=== PATIENT | female | born 1990 | race African-American/Black ===

== ENCOUNTER 2017-08-19 22:08 | Emergency (ER) | payer OTHER, SELFPAY ==
[2017-08-19 23:23] LABS: Pregnancy Test - Urine (BHCG) POSITIVE (Negative); Pregu Control Background? CLEAR/WHITE (CLR/WHITE); Pregu Control Bar Appear? YES (CONTROL BAR)
[2017-08-19 23:24] LABS: Bilirubin Negative (Negative); Blood, Urine Moderate (Negative); Clarity CLEAR (Clear); Glucose, Urine (Dipstick) Negative (Negative); Leukocyte Negative (Negative); Nitrite Negative (Negative); Protein, Urine (Dipstick) Trace mg/dL (Neg-Trace); Specific Gravity, Urine 1.024 (1.002-1.036); pH, Urine 7.5 (5.0-9.0)
[2017-08-19 23:25] LABS: Bacteria/HPF None Seen HPF (None Seen); Hyaline Casts/LPF 0-3 HYALINE CAST LPF (0-3 Hyaline); RBC/HPF 0-3 HPF (0-3); Squamous Epithelial 0-3 HPF (0-3); WBC/HPF 0-3 HPF (0-3)
[2017-08-19 23:26] LABS: Specific Gravity 1.024 (1.002-1.036)
[2017-08-19] MEDS ORDERED: Acetaminophen 500 MG TAB ONE (23:37)
[2017-08-19 23:42] LABS: #Monocytes 0.4 thou/uL (0.11-0.59); #Neutrophils 5.5 thou/uL (1.40-6.50); %Basophils 0.3 % (0.0-1.0); %Eosinophils 0.4 % (0.0-10.0); %Monocytes 5.9 % (0.0-10.0); %Neutrophils 79.5 % (42.0-75.0); Hemoglobin 12.8 g/dL (12.0-16.0); Mean Corpuscular HGB CONC 34.7 g/dL (32.0-36.0); Mean Corpuscular Hemoglobin 31.7 pg (27.0-31.0); Mean Corpuscular Volume 91.4 fL (78.0-98.0); Mean Platelet Volume 7.8 fL (7.4-10.4); Platelet Count 215 thou/uL (130-400); RBC Distribution Width 11.9 % (11.5-14.5); Red Blood Cell (RBC) Count 4.05 mill/uL (4.20-5.40)
[2017-08-19 23:49] LABS: BHCG - Serum POSITIVE (NEGATIVE); Pregs Control Background? CLEAR/WHITE (CLR/WHITE); Pregs Control Bar Appear? YES (CONTROL BAR)
[2017-08-20 00:04] LABS: ALT (SGPT) 23 U/L (8-55); AST (SGOT) 24 U/L (5-34); Albumin 3.8 g/dL (3.5-5.0); Alkaline Phosphatase 89 U/L (40-150); Anion Gap 10 mmol/L (10-20); BUN (Urea Nitrogen) 13 mg/dL (7.0-18.7); Bilirubin, Total 0.3 mg/dL (0.2-1.2); Calc. Creatinine Clearance 0 mL/min (70-130); Calcium 9.7 mg/dL (7.8-10.44); Carbon Dioxide 25 mmol/L (22-29); Chloride 107 mmol/L (98-107); Estimated GFR-MDRD 83; Glucose 124 mg/dL (70-105); Lipase 50 U/L (8-78); Potassium 4.2 mmol/L (3.5-5.1); Protein, Total 7.8 g/dL (6.0-8.3); Sodium 138 mmol/L (136-145)
--- NOTE | 2017-08-20 07:10 | CON ---
DATE OF CONSULTATION: 08/20/2017 LOCATION: Emergency room bed, 26. CHIEF COMPLAINT: Rule out ectopic. CONSULTING PHYSICIAN: Dr. López. HISTORY OF PRESENT ILLNESS: This is a 26-year-old 1 who found out she was 2 days ag o who presented to the emergency room for a sudden onset of sharp abdominal pain at 8:00. She report s that the pain has completely resolved at this point. Movement made it worse, but it resolved on it s own. She also had some mild vaginal spotting, but no heavy bleeding. She denies any other complai nts tonight. REVIEW OF SYSTEMS: Negative for head, eyes, ears, nose, throat, cardiovascular, respiratory, GI, , neuro, psych, musculoskeletal, skin or constitutional symptoms other than mentioned above. PAST MEDICAL HISTORY: HIV. PAST SURGICAL HISTORY: Laparoscopic cholecystectomy. OBSTETRIC AND GYNECOLOGIC HISTORY: Reports no abnormal Pap smears. This is her first . MEDICATIONS: HIV medications. ALLERGIES: No known drug allergies. SOCIAL HISTORY: Positive for tobacco use, but reports she quit today. Negative for alcohol, or drug use. FAMILY HISTORY: Noncontributory. PHYSICAL EXAMINATION: VITAL SIGNS: Afebrile with normal vital signs. GENERAL: Awake, alert, in no acute distress, appears comfortable. CHEST: Nonlabored breathing. ABDOMEN: Morbidly obese, soft, nontender to palpation. No guarding or rebound. PELVIC: Limited due to body habitus, but no cervical motion tenderness or tenderness on exam. No bl eeding noted. IMAGING: Ultrasound revealed an endometrial stripe measuring approximately 6 mm. No obvious intraut erine . Questionable cystic structure in the adnexa, but no definitive evidence of ectopic . Minimal free fluid in the pelvis. LABORATORY DATA: HCG 2314. Labs are otherwise unremarkable. ASSESSMENT AND PLAN: A 26-year-old G1 with early intrauterine versus ectopic . T here is no definitive evidence of ectopic and the patient's symptoms have now resolved. Gi iain the recent recommendations from ACOG to increase the threshold up to 3500 and the resolution of t he patient's symptoms, I recommend the patient return in 48 hours for repeat hCG and ultrasound. At that time, the level should be high enough to definitively rule out a normal intrauterine . She should return prior to that if her symptoms worsen. I reiterated the importance of the patient show up for repeat exam and laboratory and she agrees to do so.
--- NOTE | 2017-08-20 10:46 | ULT ---
PRELIMINARY REPORT/[facility]/EMERGENCY AFTER HOURS PROCEDURE: EXAM: US , Transvaginal CLINICAL HISTORY: 26 years old, female; Pain; Other: Vag spotting, pelvic pain; Gestational age or lmp: ? 5-6weeks suellen od "in june"; ; Patient HX: Exam limited due to pt body habitus (127kg). HCG level 2314. TECHNIQUE: Real-time transvaginal obstetrical ultrasound of the maternal pelvis and a first trimester with image documentation. Transvaginal imaging was used for better evaluation of the fetus and adnexa . COMPARISON: No relevant prior studies available. FINDINGS: The uterus is empty. No visible intrauterine gestational sac. Endometrial thickness is 6.3 mm. Small amount of right adnexal fluid. Neither ovary is well visualized/defined at this time. Complex appearing right adnexal "mass", measuring 61 x 29 mm. The sonographic appearance is not specific. Some of this tissue may represent the right ovary. Small 5-6 mm cystic area in this region may represent a small ovarian cyst versus an ectopic gestatio nal sac. However, there is no visible yolk sac or pole to definitively allow diagnosis of ectop ic at this time. However, an ectopic certainly is in the differential diagnosis for this appearance. The sonographic appearance alone is nonspecific. The differential diagnosis includes; an early viable intrauterine less than four to five we eks gestation; a miscarriage; as well as an ectopic . With an HCG level of 2314, a viable intrauterine gestational sac should usually be visible. Therefore , a viable intrauterine is probably less likely. If there has been insufficient vaginal bleed ing to suggest a miscarriage, there should be increased concern about an ectopic . Gynecological consultation and close/appropriate follow up, including HCG level follow-up is recommen ded. The urinary bladder was not completely evaluated/imaged at this time. IMPRESSION: No visible intrauterine gestational sac. Complex right adnexal mass, details above. See above discussion and recommendations. Small amount of right adnexal fluid. Other details discussed above. Thank you for allowing us to participate in the care of your patient. Dictated and Authenticated by: Yassine Damon MD 08/20/2017 2:26 AM Central Time ([place] & [place]) FINAL REPORT PELVIC ULTRASOUND: Date: 08/20/17 Endovaginal ultrasound of pelvis performed. There is evidence of an echogenic mass in the right adnexa. Ectopic is a primary considerat ion, as noted on the preliminary report. I am in agreement with the preliminary report issued by [facility] . POS: [facility]
== END 2017-08-20 03:10 | disposition home or self-care (01) ==
LOC: ERS 22:08
DX: O99.89 Other specified diseases and conditions complicating pregnancy, childbirth and the puerperium (principal); R10.31 Right lower quadrant pain; O98.711 Human immunodeficiency virus [HIV] disease complicating pregnancy, first trimester; O99.331 Smoking (tobacco) complicating pregnancy, first trimester; F17.210 Nicotine dependence, cigarettes, uncomplicated
CPT/HCPCS: 36415; 76856; 80053; 81003; 81015; 81025; 83690; 84702; 84703; 85025

== ENCOUNTER 2017-08-21 16:34 | Observation (INO) | payer OTHER ==
[~2017-08-21 16:34] MED LIST: Lidocaine 1% PF 5 ML VIAL ONE; PROPOFOL 200 MG/20 ML VIAL ONE; Succinylcholine Chloride 20 MG/ML 10 ml SYRINGE FS ONE
[2017-08-21 20:03] LABS: ALT (SGPT) 20 U/L (8-55); AST (SGOT) 24 U/L (5-34); Albumin 3.6 g/dL (3.5-5.0); Alkaline Phosphatase 80 U/L (40-150); Anion Gap 12 mmol/L (10-20); BUN (Urea Nitrogen) 10 mg/dL (7.0-18.7); Bilirubin, Total 0.3 mg/dL (0.2-1.2); Calc. Creatinine Clearance 0 mL/min (70-130); Calcium 8.9 mg/dL (7.8-10.44); Carbon Dioxide 22 mmol/L (22-29); Chloride 108 mmol/L (98-107); Estimated GFR-MDRD Greater than 90; Globulin 3.4 g/dL (2.4-3.5); Glucose 116 mg/dL (70-105); Potassium 3.8 mmol/L (3.5-5.1); Sodium 138 mmol/L (136-145)
--- NOTE | 2017-08-21 20:09 | ULT ---
PELVIC ULTRASOUND: HISTORY: Evaluate for ectopic . Repeat examination. COMPARISON: 08/20/2017 TECHNIQUE: Transabdominal and endovaginal images of the pelvis were performed. The was interpreted with lee-scale, color-flow, and Doppler imaging with spectral wave-form analysis. FINDINGS: The uterus was identified, measuring 3.7 x 4.2 x 7.4 cm. No myometrial masses. The endometrium has a diameter of 0.5 cm. No evidence of a gestational sac, yolk sac, or pole within the endometrium. The left ovary is not appreciated. In the right adnexa, there is a hyperechoic focus with a central anechoic component. Currently, this lesion measures 1.7 x 2.1 x 1.4 cm. The central anechoic area measures 0.5 cm. There is free fluid in the pelvis, within the cul-de-sac and right adnexa. IMPRESSION: 1. Re-demonstration of echogenic focus involving the right adnexa with a central anechoic area. No significant vascularity along the periphery of this lesion. The possibility of a right adnexal ectop ic cannot be completely excluded. Free fluid in the pelvis is again noted. Correlation with serial beta hCGs is recommended. 2. No evidence of an intrauterine gestation. POS: [facility]
[2017-08-21 21:01] LABS: Band 2 % (5-11); Eosinophils 3 % (0-10); Hemoglobin 13.2 g/dL (12.0-16.0); Lymphocytes 28 % (21-51); MDiff Complete? YES; Mean Corpuscular HGB CONC 33.9 g/dL (32.0-36.0); Mean Corpuscular Volume 91.5 fL (78.0-98.0); Mean Platelet Volume 7.9 fL (7.4-10.4); Monocytes 5 % (0-10); Neutrophil 62 % (42-75); PLT Morphology Comment Appears Adequate; Platelet Count 201 thou/uL (130-400); Red Blood Cell (RBC) Count 4.26 mill/uL (4.20-5.40); White Blood Cell (WBC) Count 5.9 thou/uL (4.8-10.8)
[2017-08-21] MEDS ORDERED: Ondansetron ODT 4 MG TAB SL PRN (21:12)
[2017-08-21] MEDS ORDERED: Ondansetron HCl/PF 4 MG/2 ML Vial IVP PRN ×2 (21:12→23:03)
[2017-08-21] MEDS ORDERED: Sodium Chloride 0.9% 1,000 ML IV SCH (21:12)
[2017-08-21] MEDS ORDERED: Fentanyl 100 MCG/2 ML VIAL ONE ×2 (21:54→23:29)
[2017-08-21] MEDS ORDERED: Promethazine HCl 25 MG/ML VIAL IM PRN (23:03)
[2017-08-21] MEDS ORDERED: HYDROmorphone 2 MG/ML VIAL SLOW IVP PRN (23:03)
[2017-08-21] MEDS ORDERED: Promethazine HCl 25 MG/ML VIAL SLOW IVP PRN (23:03)
[2017-08-21] MEDS ORDERED: Albuterol Sulfate 1.25 MG/3 ML NEB ONE (23:18)
--- NOTE | 2017-08-22 00:30 | PDOC.EVN ---
Event Note - Event Note Event Note: Pt. awake and alert s/p D&C. Frozen section returns showing no villi. Preop CVBC, renal function and LFTs all normal. She is RH positive. Options of surgery vs. MTX discussed in detail. Will discuss risk of MTX with her HIV status with ID vs. MFM in AM prior to giving single dose therapy.
--- NOTE | 2017-08-22 00:48 | HP ---
DATE OF ADMISSION: 08/21/2017 CHIEF COMPLAINT: "[place] [facility] [place] HISTORY OF PRESENT ILLNESS: Ms. Lauren is a 26-year-old G1, P0 with an uncertain last menstrual period, who was seen in the emergency room 2 days ago with onset of sharp abdominal pain. Evaluation at that time demonstrated an ultrasound showing an essentially empty uterus with a stripe of only 6 mm and with a beta hCG of 2314. Decision at that time was made to have her come back and repeat it now in 48 hours for reevaluation of her beta hCG. She returns tonight and it returns at 2274. This is essentially plateaued from the value of 2314 that she had 48 hours ago. Since that time, she states that she has had vaginal bleeding. She states that she is not bleeding currently. She denies severe abdominal pain, nausea or vomiting, but she does notice some cramping. PAST MEDICAL HISTORY: Remarkable for HIV for which she states she is stable on retroviral. PAST SURGICAL HISTORY: Laparoscopic cholecystectomy. CURRENT MEDICATIONS: HIV medications. ALLERGIES: No known drug allergies. SOCIAL HISTORY: She smokes, but denies alcohol or drug use. FAMILY HISTORY: She denies breast or pelvic malignancy. PHYSICAL EXAMINATION: VITAL SIGNS: Stable. She is afebrile. GENERAL: She is awake and alert. She is in no distress. CHEST: Shows nonlabored breathing. ABDOMEN: Morbidly obese and is nontender. There is no guarding or rebound. PELVIC: Pelvic examination is deferred. ASSESSMENT: 1) Missed versus ectopic 2) HIV PLAN: At this time, we will proceed to the operating room for diagnostic D&C. Should no chorionic villi be found, methotrexate treatment may be considered if OK with Infectious Disease. It does appear her HIV disease is stable on antivirals at this time. She understands the benefits and risks of this approach and agrees to proceed. SCOTT
[2017-08-22] MEDS ORDERED: Acetaminophen/Codeine 30-300mg Tablet PO PRN ×2 (01:45)
[2017-08-22 02:02] VITALS: BMI 49.6
[2017-08-22] MEDS: Sodium Chloride 0.9% 1,000 ML IV SCH ×2 (02:19→10:09)
--- NOTE | 2017-08-22 02:22 | OP ---
DATE OF PROCEDURE: 08/21/2017 PREOPERATIVE DIAGNOSIS: Missed versus ectopic. POSTOPERATIVE DIAGNOSIS: Missed versus ectopic. PROCEDURE PERFORMED: Sharp curettage of the uterus. SURGEON: José Miguel Solorzano M.D. ANESTHESIA: General endotracheal. ESTIMATED BLOOD LOSS: Minimal. COMPLICATIONS: None. FINDINGS: 1. Cervix slightly open with blood at the os. 2. Minimal tissue obtained upon curettage. PROCEDURE IN DETAIL: The patient was brought to the operating room, where a good general endotrachea l anesthesia was achieved. The patient was prepped and draped in the usual sterile fashion in the do rsal lithotomy position using the Leon stirrups. A weighted speculum was inserted in the vagina and a single-tooth tenaculum was used to grasp the cervix. Prior to this, the bladder had been drained with a red rubber catheter. Could be seen that the cervix appeared slightly open with blood at the o s. No active bleeding was seen. Graduated dilators were then used to carefully dilate the uterine cervix. A sharp curet was then pas sed through all quadrants of the uterus and the contents were placed on a Telfa pad. A minimal amoun t of tissue was obtained upon curettage. All instruments were then removed from the vagina. Sponge and instrument counts were correct. The patient tolerated the procedure well and was taken to the re covery room in good condition. Tissue was submitted for frozen section and the results are pending a s of this dictation.
[2017-08-22 12:47] VITALS: BP 127/60; TEMP 98.5
--- NOTE | 2017-08-22 21:22 | DIS ---
DATE OF ADMISSION: 08/21/2017 DATE OF DISCHARGE: 08/22/2017 DIAGNOSES: 1. Ectopic . 2. Human immunodeficiency virus positive. 3. Morbid obesity. PROCEDURES: Diagnostic D&C with Dr. Solorzano. HOSPITAL COURSE: The patient presented to the emergency department for repeat hCG level and ultrasound on 08/21/2017. Her hCG level had plateaued at 48 hours. The initial hCG level was 2314 with a repeat of 2274. An ultrasound was performed which again did not show an intrauterine , but had an area questionable for ectopic . Dr. Solorzano then proceeded to the OR for diagnostic D&C which showed no chorionic villi. The patient was placed on observation until her Infectious Disease physician, Dr. Mo, could be contacted regarding her labs related to her HIV status. I talked to Dr. Mo on 08/22/2017 who relayed her undetectable HIV quantitative level and a CD4 count of over 500 at her last visit. He felt she has been very compliant and should be fine to receive methotrexate therapy for ectopic . She was given a dose of methotrexate and will return to [facility] for her day 4 hCG level. DIET: Regular. ACTIVITY: Pelvic rest. FOLLOWUP: [facility] in 4 days for repeat hCG level. INSTRUCTIONS: Call or return for significant pain or other concerns. SCOTT
== END 2017-08-22 14:10 | disposition home or self-care (01) ==
LOC: ERS 16:34 → 3SW 20:50
PROVIDERS: ADMIT Obstetrics & Gynecology; ATTEND Obstetrics & Gynecology
PROC: 0UDB7ZX Extraction of Endometrium, Via Natural or Artificial Opening, Diagnostic (ICD-10-PCS; principal; 2017-08-22)
DX: O00.90 Unspecified ectopic pregnancy without intrauterine pregnancy (principal); F17.210 Nicotine dependence, cigarettes, uncomplicated; E66.01 Morbid (severe) obesity due to excess calories; Z68.42 Body mass index [BMI] 45.0-49.9, adult; Z21 Asymptomatic human immunodeficiency virus [HIV] infection status
CPT/HCPCS: 36415; 76856; 80053; 84702; 85025; 86850; 86870; 86900; 86901; 86905; 88305; 88331; 96360; 96361; 96372; 99285; G0378; J2001; J2704; J3010; J9250; Q0162

== ENCOUNTER 2017-11-26 02:37 | Emergency (ER) | payer OTHER ==
[2017-11-26] MEDS ORDERED: Metoprolol Tartrate 50 MG TAB ONE (03:23)
[2017-11-26 04:08] LABS: CKMB 1.1 ng/mL (0-6.6); Troponin I Less than 0.010 ng/mL (< 0.028)
--- NOTE | 2017-11-26 08:37 | RAD ---
CHEST 1 VIEW: HISTORY: Chest pain. FINDINGS: Cardiac silhouette is magnified by projection. Pulmonary vasculature is upper limits of normal and a ccentuated by shallow inspiration. Mediastinum is midline. No lobar consolidation or evidence of pneumothorax. IMPRESSION: Shallow inspiration. No active cardiopulmonary abnormalities are demonstrated. POS: [facility]
== END 2017-11-26 04:25 | disposition home or self-care (01) ==
LOC: ERS 02:37
DX: R07.9 Chest pain, unspecified (principal); R00.0 Tachycardia, unspecified; B20 Human immunodeficiency virus [HIV] disease; F17.210 Nicotine dependence, cigarettes, uncomplicated
CPT/HCPCS: 36415; 71045; 82553; 84484; 93005

== ENCOUNTER 2018-01-15 16:08 | Emergency (ER) | payer OTHER | END 2018-01-15 17:24 | disposition home or self-care (01) | LOC: ERS 16:08 | DX: O99.89 Other specified diseases and conditions complicating pregnancy, childbirth and the puerperium (principal); M79.645 Pain in left finger(s); O99.331 Smoking (tobacco) complicating pregnancy, first trimester; O98.711 Human immunodeficiency virus [HIV] disease complicating pregnancy, first trimester; Z3A.01 Less than 8 weeks gestation of pregnancy; Z79.899 Other long term (current) drug therapy | CPT/HCPCS: 99283 ==

== ENCOUNTER 2018-05-12 14:54 | Emergency (ER) | payer OTHER | END 2018-05-12 15:55 | disposition left against medical advice (07) | LOC: SCSER 14:54 | DX: Z53.21 Procedure and treatment not carried out due to patient leaving prior to being seen by health care provider (principal) ==